=== PATIENT | female | born 1985 | race Caucasian/White ===

== ENCOUNTER 2023-07-09 05:32 | Day surgery (SDC) | payer OTHER ==
[~2023-07-09] VITALS: Ht 157.5 cm; Wt 79.4 kg
[2023-07-09] MEDS ORDERED: MORGIDOX100 MG PO ×2 (08:21→08:30)
[2023-07-09] MEDS ORDERED: IBU600 MG PO ×2 (08:22→08:34)
[2023-07-09] MEDS ORDERED: MONODOX100 MG PO (08:33)
== END 2023-07-09 14:20 | disposition home or self-care (01) ==
LOC: CIR.AMB 05:32
PROVIDERS: ATTEND Obstetrics & Gynecology
DX: N84.0 Polyp of corpus uteri (principal); N92.1 Excessive and frequent menstruation with irregular cycle; Z20.822 Contact with and (suspected) exposure to COVID-19